=== PATIENT | female | born 2000 | race Caucasian/White ===

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

== ENCOUNTER 2020-01-27 11:16 | Emergency (ER) | payer MEDICAID ==
[~2020-01-27] VITALS: Ht 160 cm; Wt 100.0 kg
[~2020-01-27 11:16] MED LIST changes: +ALL DAY10 MG PO
[2020-01-27] MEDS ORDERED: ZPAK PO (13:16)
[2020-01-27 13:20] VITALS: BP 131/74
--- NOTE | 2020-01-29 14:38 | NUR ---
Patient called for Covid, Strep and Flu results. Advised patient that all were negative. Patient denies SOB. Advised patient to return to the ED with any difficulty breathing or other urgent needs. Advised her to follow up with her family doctor. Patient verbalized understanding. Patient requests a copy of results for work/school. Verbal consent given to me by patient to make a copy of above results and leave at the senior front end developer for slate picker.
== END 2020-01-27 13:20 | disposition home or self-care (01) ==
LOC: ED 11:16
DX: J06.9 Acute upper respiratory infection, unspecified (principal); Z20.828 Contact with and (suspected) exposure to other viral communicable diseases

== ENCOUNTER 2020-04-03 17:22 | Emergency (ER) | payer MEDICAID ==
[~2020-04-03] VITALS: Ht 160 cm; Wt 85.0 kg
[~2020-04-03 17:22] MED LIST changes: +ZPAK PO
[2020-04-03 18:33] VITALS: BP 109/64
[2020-04-03] MEDS ORDERED: ZITHROMAX250 MG PO (18:39)
== END 2020-04-03 19:06 | disposition home or self-care (01) ==
LOC: ED 17:22
DX: J06.9 Acute upper respiratory infection, unspecified (principal); Z20.828 Contact with and (suspected) exposure to other viral communicable diseases

== ENCOUNTER 2020-08-30 21:11 | Emergency (ER) | payer MEDICAID ==
[~2020-08-30] VITALS: Ht 160 cm; Wt 88.0 kg
[~2020-08-30 21:11] MED LIST changes: +ZITHROMAX250 MG PO
[2020-08-31 01:13] VITALS: BP 117/71
== END 2020-08-31 01:22 | disposition home or self-care (01) ==
LOC: ED 21:11
DX: R51.9 Headache, unspecified (principal)

== ENCOUNTER 2020-12-13 13:28 | Emergency (ER) | payer MEDICAID ==
[~2020-12-13] VITALS: Ht 160 cm; Wt 92.7 kg
[2020-12-13 15:54] VITALS: BP 107/77
== END 2020-12-13 15:54 | disposition home or self-care (01) ==
LOC: ED 13:28
DX: B34.9 Viral infection, unspecified (principal); Z20.822 Contact with and (suspected) exposure to COVID-19

== ENCOUNTER 2021-03-07 18:49 | Emergency (ER) | payer MEDICAID ==
[~2021-03-07] VITALS: Ht 160 cm; Wt 100.0 kg
[2021-03-07 20:20] LABS: HEMATOCRIT 44.3 % (37.0-47.0); HEMOGLOBIN 14.3 g/dl (12.0-16.0); IMMATURE GRANULOCYTES 0.4 % (0.0-5.0); MEAN CELL VOLUME 81.3 fL CALC (80.0-100.0); MEAN CORPUSCULAR HGB 26.2 pG CALC (26.0-32.0); MEAN CORPUSCULAR HGB CONC 32.3 g/dL CAL (32.0-36.0); NEUT# 2.85 thou/uL (2.00-7.15); RED BLOOD COUNT 5.45 mill/uL (4.20-5.60); RED CELL DISTRI WIDTH 13.3 % (11.5-15.5)
[2021-03-07 20:50] VITALS: BP 130/80
== END 2021-03-07 20:50 | disposition home or self-care (01) ==
LOC: ED 18:49
PROVIDERS: Family Medicine
DX: B34.9 Viral infection, unspecified (principal); Z20.822 Contact with and (suspected) exposure to COVID-19

== ENCOUNTER 2021-08-03 07:09 | Emergency (ER) | payer MEDICAID ==
[~2021-08-03] VITALS: Ht 160 cm; Wt 99.0 kg
[2021-08-03] VITALS (9 sets, daily range): BP systolic 110–127; BP diastolic 62–80
[2021-08-03 08:14] LABS: ALBUMIN 4.6 g/dL (3.2-5.0); ALKALINE PHOSPHATASE 113 u/l (38-126); ANION GAP 12 (6-22 (CALC)); BILIRUBIN, TOTAL 0.6 mg/dL (0.0-1.4); BUN 10 mg/dL (7-17); BUN/CREATININE RATIO 18 (12-20 (CALC)); CARBON DIOXIDE 24 mmol/l (22-30); CHLORIDE 106 mmol/l (95-108); CREATININE 0.6 mg/dL (0.5-1.0); GFR > 60 ML/MIN (>=60 (CALC)); GFR FOR AFR.AMER. > 60 ML/MIN (>=60 (CALC)); LIPASE 36 u/l (23-300); POTASSIUM 3.9 mmol/l (3.5-5.1); SODIUM 137 mmol/l (137-146); TOTAL PROTEIN 8.4 g/dL (6.3-8.2)
[2021-08-03 08:15] LABS: SGOT/AST 37 u/l (14-36)
[2021-08-03 08:16] LABS: HEMATOCRIT 45.7 % (37.0-47.0); HEMOGLOBIN 14.5 g/dl (12.0-16.0); IMMATURE GRANULOCYTES 0.3 % (0.0-5.0); MEAN CELL VOLUME 81.6 fL CALC (80.0-100.0); MEAN CORPUSCULAR HGB 25.9 pG CALC (26.0-32.0); MEAN CORPUSCULAR HGB CONC 31.7 g/dL CAL (32.0-36.0); NEUT# 6.15 thou/uL (2.00-7.15); RED BLOOD COUNT 5.6 mill/uL (4.20-5.60); RED CELL DISTRI WIDTH 13.8 % (11.5-15.5)
[2021-08-03 08:30] LABS: URINE BILIRUBIN - DIPSTICK NEGATIVE (NEGATIVE); URINE COLOR YELLOW; URINE GLUCOSE - DIPSTICK NEGATIVE (NEGATIVE); URINE KETONE TRACE mg/dL (NEGATIVE); URINE LEUK ESTERASE NEGATIVE (NEGATIVE); URINE PROTEIN - DIPSTICK NEGATIVE (NEG-TRACE); URINE SPECIFIC GRAVITY >=1.030; URINE UROBILINOGEN - DIPSTICK 0.2 E.U./dL (0.2)
[2021-08-03 08:34] LABS: URINE BLOOD DIPSTICK TRACE (NEGATIVE); URINE NITRITE - DIPSTICK NEGATIVE (Negative)
== END 2021-08-03 11:01 | disposition home or self-care (01) ==
LOC: ED 07:09
DX: O20.0 Threatened abortion (principal); O34.81 Maternal care for other abnormalities of pelvic organs, first trimester; N83.202 Unspecified ovarian cyst, left side; Z3A.01 Less than 8 weeks gestation of pregnancy